=== PATIENT | female | born 1985 | race African-American/Black ===

== ENCOUNTER 2021-09-18 04:26 | Day surgery (SDC) | payer OTHER ==
[2021-09-13 14:43] VITALS: BMI 39.2
[2021-09-18] MEDS ORDERED: LIDOCAINE HCL 2% (20ML MULTI-DOSE VIAL) ONE (09:09)
[2021-09-18] MEDS ORDERED: DEXAMETHASONE SOD PHOSPHATE 4 MG/1 ML VIAL ONE (09:09)
[2021-09-18] MEDS ORDERED: BUPIVACAINE HCL/PF 0.5% (5MG/ML) 10 ML VIAL ONE (09:09)
[2021-09-18] MEDS ORDERED: MIDAZOLAM HCL 2 MG/2 ML SINGLE DOSE VIAL ONE (09:11)
[2021-09-18] MEDS ORDERED: ceFAZolin SODIUM 1 GM VIAL IVPB ONE (09:45)
[2021-09-18] MEDS ORDERED: LIDOCAINE HCL 2% (50ML VIAL) SQ ONE ×2 (09:45)
[2021-09-18] MEDS ORDERED: BUPIVACAINE HCL/PF 0.5% (5MG/ML) 10 ML VIAL IJ ONE (09:45)
[2021-09-18] MEDS ORDERED: PROPOFOL 20 ML ONE (09:48)
[2021-09-18] MEDS ORDERED: DEXAMETHASONE 4 MG TABLET (FP) NR ONE (10:24)
[2021-09-18 12:44] VITALS: BP 121/68; PULSE 72; TEMP 97.3
== END 2021-09-18 13:25 | disposition home or self-care (01) ==
LOC: JASU-SURG 04:26
PROVIDERS: ATTEND Podiatrist
PROC: 0QSP04Z Reposition Left Metatarsal with Internal Fixation Device, Open Approach (ICD-10-PCS; principal; 2021-09-18 09:30)
DX: M20.22 Hallux rigidus, left foot (principal)
CPT/HCPCS: 73630-TC-LT; 81025; 88304-TC; 88311-TC